=== PATIENT | male | born 1985 | race Caucasian/White ===

== ENCOUNTER 2017-10-08 20:17 | Emergency (ER) | payer MEDICAID ==
--- NOTE | 2017-10-08 21:46 | C.PDOC ---
History Of Present Illness 32 y/o male presents to the ER complaining of swelling and redness to the right forearm which has been present for the past 3 days. Patient states that the symptoms have become worse over the past day prompting his visit to the ER. Furthermore, he was evaluated by yesterday and Dr. Hargrove referred him to the ER. Denies having fever, drainage, weakness, and numbness. Time Seen by Provider: 10/08/17 21:30 Chief Complaint (Nursing): Abnormal Skin Integrity History Per: Patient History/Exam Limitations: no limitations Onset/Duration Of Symptoms: Days Current Symptoms Are (Timing): Still Present Severity: Moderate Past Medical History Reviewed: Historical Data, Nursing Documentation, Vital Signs Vital Signs: Last Vital Signs Temp 98.2 F 10/09/17 00:01 Pulse 57 L 10/09/17 00:01 Resp 18 10/09/17 00:01 BP 119/63 10/09/17 00:01 Pulse Ox 98 10/09/17 00:37 - Medical History PMH: Asthma, Gastritis Surgical History: No Surg Hx Family History: States: No Known Family Hx - Social History Hx Tobacco Use: No Hx Alcohol Use: No Hx Substance Use: No - Immunization History Hx Tetanus Toxoid Vaccination: No Hx Influenza Vaccination: No Hx Pneumococcal Vaccination: No Review Of Systems Except As Marked, All Systems Reviewed And Found Negative. Constitutional: Negative for: Fever, Chills Skin: Positive for: Other (swelling to right forearm) Neurological: Negative for: Weakness, Numbness Physical Exam - Physical Exam Appears: Non-toxic, No Acute Distress Skin: Normal Color, Warm, Dry Head: Atraumatic, Normacephalic Eye(s): bilateral: Normal Inspection Nose: Normal Oral Mucosa: Moist Neck: Supple Chest: Symmetrical Cardiovascular: Rhythm Regular Respiratory: Normal Breath Sounds, No Rales, No Rhonchi, No Wheezing Extremity: Normal ROM (right forearm, right elbow), No Tenderness, Capillary Refill (<2 sec), Swelling ((+) 4 - 5 cm region of moderate swelling and erythema to ulnar aspect of right forearm, small area of fluctuance in the center) Neurological/Psych: Oriented x3, Normal Speech, Normal Motor Gait: Steady ED Course And Treatment - Laboratory Results Result Diagrams: 10/08/17 21:48 10/08/17 21:48 O2 Sat by Pulse Oximetry: 98 (RA) Pulse Ox Interpretation: Normal - Incision & Drainage Of Abscess Anesthesia: Lidocaine 2% Prep Used: Sterile Water, Betadine Procedure: Incised W/Scalpel Blade#: (11), Drained Pus, Cultures Obtained And Sent To Lab Medical Decision Making Medical Decision Making: Plan: --Labs The patient was evaluated by the surgical services tech who feels that the patient does not require surgical intervention at this time. The wound had some fluctuance to it and was aspirated initially and then I&D performed. Disposition - Disposition Referrals: [facility] [Outside] Disposition: HOME/ ROUTINE Disposition Time: 00:32 Condition: GOOD Additional Instructions: Apply warm compresses to the area 4 times a day. RETURN TO THE ED IF WORSENED. 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 - Scribe Statement The provider has reviewed the documentation as recorded by the Audrey Gutierrez Provider Attestation All medical record entries made by the Scribe were at my direction and personally dictated by me. I have reviewed the chart and agree that the record accurately reflects my personal performance of the history, physical exam, medical decision making, and the department course for this patient. I have also personally directed, reviewed, and agree with the discharge instructions and disposition.
[2017-10-08 21:51] LABS: BASO # 0.1 K/uL (0.0-0.2); BASO % 0.6 % (0.0-2.0); EOS # 0.4 K/uL (0.0-0.7); EOS % 4.5 % (0.0-4.0); LYMPH # 2.5 K/uL (1.0-4.3); LYMPH % 25.5 % (20.0-40.0); MEAN CELL VOLUME 84.3 fL (80.0-94.0); MEAN CORPUSCULAR HEMOGLOBIN 28.7 pg (27.0-31.0); MEAN CORPUSCULAR HGB CONC 34.1 g/dL (33.0-37.0); MEAN PLATELET VOLUME 9.7 fL (7.2-11.7); MONO # 1.1 K/uL (0.0-0.8); MONO % 10.9 % (0.0-10.0); NEUT # 5.7 K/uL (1.8-7.0); NEUT % 58.5 % (50.0-75.0); RBC 4.87 Mil/uL (4.40-5.90); RED CELL DISTRIBUTION WIDTH 13.4 % (11.5-14.5); WHITE BLOOD COUNT 9.7 K/uL (4.8-10.8)
[2017-10-08 22:09] LABS: ALB/GLOB RATIO 1.3 (1.0-2.1); ALBUMIN 4.2 g/dL (3.5-5.0); ALT/SGPT 37 U/L (21-72); AST/SGOT 29 U/L (17-59); BLOOD UREA NITROGEN 11 mg/dL (9-20); CALCIUM 9.4 mg/dl (8.6-10.4); GFR AFRICAN-AMERICAN > 60; GFR NON-AFRICAN AMERICAN > 60
[2017-10-08] MEDS ORDERED: Clindamycin 600mg/50ml NS 600 MG/50 ML BAG IVPB ONE ×2 (23:23→23:30)
[2017-10-08] MEDS ORDERED: Lidocaine Hydrochloride 5 ML INJ ONE (23:48)
[2017-10-09 00:01] VITALS: BP 119/63; PULSE 57; RESP 18; TEMP 98.2
[2017-10-09 00:36] VITALS: O2SAT 98
== END 2017-10-09 00:51 | disposition home or self-care (01) ==
LOC: C.ER 20:17
DX: L02.413 Cutaneous abscess of right upper limb (principal)

== ENCOUNTER 2017-10-10 21:40 | Emergency (ER) | payer MEDICAID ==
[2017-10-10 22:04] VITALS: TEMP 98.1
[2017-10-10] MEDS ORDERED: Sodium Chloride 0.9% 1,000 ML IV ONE (22:33)
[2017-10-10] MEDS ORDERED: Alum-Mag Hydrox-Simethicone Susp (30 mL) PO STA (22:33)
[2017-10-10] MEDS ORDERED: Alum-Mag Hydrox-Simethicone Susp (30 mL) ONE (22:46)
[2017-10-10] MEDS ORDERED: Sodium Chloride 0.9% 1,000 ML ONE (22:46)
[2017-10-10 22:49] LABS: BASO % 0.3 % (0.0-2.0); EOS # 0.2 K/uL (0.0-0.7); EOS % 1.7 % (0.0-4.0); HEMOGLOBIN 13.9 g/dL (12.0-18.0); LYMPH # 0.8 K/uL (1.0-4.3); LYMPH % 7.7 % (20.0-40.0); MEAN CELL VOLUME 84.6 fL (80.0-94.0); MEAN CORPUSCULAR HEMOGLOBIN 28.9 pg (27.0-31.0); MEAN CORPUSCULAR HGB CONC 34.2 g/dL (33.0-37.0); MEAN PLATELET VOLUME 9.6 fL (7.2-11.7); MONO # 0.8 K/uL (0.0-0.8); NEUT # 8.1 K/uL (1.8-7.0); NEUT % 82.3 % (50.0-75.0); PLATELET COUNT 164 K/uL (130-400); RBC 4.81 Mil/uL (4.40-5.90); RED CELL DISTRIBUTION WIDTH 13.5 % (11.5-14.5); WHITE BLOOD COUNT 9.9 K/uL (4.8-10.8)
[2017-10-10 23:03] LABS: ALB/GLOB RATIO 1.3 (1.0-2.1); ALBUMIN 4.3 g/dL (3.5-5.0); ALT/SGPT 129 U/L (21-72); AST/SGOT 188 U/L (17-59); BLOOD UREA NITROGEN 14 mg/dL (9-20); CALCIUM 9.8 mg/dl (8.6-10.4); GFR AFRICAN-AMERICAN > 60; GFR NON-AFRICAN AMERICAN > 60; LIPASE 72 U/L (23-300)
[2017-10-10 23:12] LABS: EOSINOPHIL 2 % (0-4); LYMPHOCYTE 9 % (20-40); MONOCYTE 8 % (0-10); NEUTROPHIL 81 % (50-75); PLATELET ESTIMATE NORMAL (NORMAL); TOTAL CELLS COUNTED 100
[2017-10-11 00:25] VITALS: BP 145/65; PULSE 88; RESP 16; O2SAT 98
--- NOTE | 2017-10-11 00:33 | US ---
EXAM: US Abdomen Limited, Right Upper Quadrant EXAM DATE/TIME: 10/10/2017 11:07 PM CLINICAL HISTORY: 32 years old, male; Pain; Abdominal pain; Epigastric; Additional info: Upper abdominal pain. Abnormal lfts. TECHNIQUE: Real-time ultrasound of the right upper quadrant with image documentation. COMPARISON: There are no prior studies for comparison. FINDINGS: Liver: There is hepatopedal flow in the main portal vein. Liver is unremarkable Gallbladder: Gallbladder is partially distended with no stones, sludge or wall thickening. Common bile duct: Common bile duct measures 4 mm in diameter. Pancreas: Pancreas is partially obscured by bowel gas. Right kidney: Right kidney is unremarkable. Aorta: Visualized portions of the aorta and inferior vena cava are unremarkable. IMPRESSION: Slightly limited visualization of the pancreas, study is otherwise normal Patient was not tender over the gallbladder
[2017-10-11] MEDS ORDERED: Pantoprazole 40 mg EC Tab PO STA (00:40)
[2017-10-11] MEDS ORDERED: Pantoprazole 40 mg EC Tab PO ONE (00:47)
--- NOTE | 2017-10-11 00:53 | C.PDOC ---
Time Seen by Provider: 10/10/17 22:26 Chief Complaint (Nursing): Abdominal Pain History Per: Patient Onset/Duration Of Symptoms: Hrs (1) Current Symptoms Are (Timing): Still Present Severity: Moderate Location Of Pain/Discomfort: Epigastric Quality Of Discomfort: "Pain" Alleviating Factors: None Additional History Per: Prior Records Past Medical History Reviewed: Historical Data, Nursing Documentation, Vital Signs Vital Signs: Last Vital Signs Temp 98.1 F 10/11/17 00:25 Pulse 88 10/11/17 00:25 Resp 16 10/11/17 00:25 BP 145/65 10/11/17 00:25 Pulse Ox 98 10/11/17 00:25 - Medical History PMH: Asthma, Gastritis Surgical History: No Surg Hx Family History: States: Unknown Family Hx - Social History Hx Tobacco Use: No Hx Alcohol Use: No Hx Substance Use: No - Immunization History Hx Tetanus Toxoid Vaccination: No Hx Influenza Vaccination: No Hx Pneumococcal Vaccination: No Review Of Systems Except As Marked, All Systems Reviewed And Found Negative. Constitutional: Negative for: Fever, Weakness Cardiovascular: Negative for: Chest Pain Respiratory: Negative for: Shortness of Breath Gastrointestinal: Positive for: Abdominal Pain. Negative for: Vomiting, Diarrhea, Melena, Hematochezia, Hematemesis Genitourinary: Negative for: Dysuria Musculoskeletal: Negative for: Neck Pain, Back Pain Skin: Negative for: Rash Neurological: Negative for: Weakness, Numbness Physical Exam - Physical Exam Appears: Non-toxic, No Acute Distress Skin: Normal Color, Warm, Dry, No Rash Head: Atraumatic, Normacephalic Eye(s): bilateral: Normal Inspection, PERRL, EOMI Neck: Normal ROM, Supple Cardiovascular: Rhythm Regular Respiratory: Normal Breath Sounds, No Accessory Muscle Use Gastrointestinal/Abdominal: Soft, Tenderness (epigastric) Back: No CVA Tenderness Extremity: Normal ROM, Other (Healing abscess on right forearm) Neurological/Psych: Oriented x3, Normal Motor, Normal Sensation ED Course And Treatment - Laboratory Results Result Diagrams: 10/10/17 22:44 10/10/17 22:44 Interpretation Of Abnormal: Elevated transaminases O2 Sat by Pulse Oximetry: 98 Pulse Ox Interpretation: Normal - CT Scan/US RUQ Sono Other Rad Studies (CT/US): Read By Radiologist, Radiology Report Reviewed CT/US Interpretation: IMPRESSION: Slightly limited visualization of the pancreas, study is otherwise. normal. . Patient was not tender over the gallbladder Progress - Interventions Interventions:: Observation, Intravenous fluid - Medications Administered Oral: Antacid, H-2 johann Intravenous: Antiemetic - Data Reviewed Data Reviewed: Lab, Diagnostic imaging, Old records - Patient Status Patient status: Mostly improved - Continuity of Care Discussed patient case with:: Patient, ED Nurse - Patient Plan Patient Plan: Discharge, F/U with PCP Disposition Counseled Patient/Family Regarding: Studies Performed, Diagnosis, Need For Followup, Rx Given - Disposition Referrals: Ahmet Hargrove MD [Staff Provider] - Disposition: HOME/ ROUTINE Disposition Time: 00:55 Condition: IMPROVED Additional Instructions: Follow up with your doctor for further evaluation and treatment. Return to the ER if you develop fever, vomiting, bloody or black stools, worsening of symptoms or if you have any other concerns. Prescriptions: Pantoprazole Sodium [Protonix] 40 mg PO DAILY #14 ect Instructions: Acute Abdomen (Belly Pain), Adult (DC) Forms: [employer] (Macedonian) Print Language: CITIZEN OF [place] - Clinical Impression Clinical Impression: Epigastric abdominal pain
== END 2017-10-11 01:08 | disposition home or self-care (01) ==
LOC: C.ER 21:40
DX: R10.13 Epigastric pain (principal)
CPT/HCPCS: 76705; 80053; 83690; 85025; 96361; 96374; 99285; J2765; J7040